=== PATIENT | female | born 1990 | race Caucasian/White ===

== ENCOUNTER → 2019-04-07 | Outpatient (CLI) | payer BC ==
[~2019-04-07] MED LIST: IBU600 MG PO; PRENATAL MVI
== END ==
LOC: COL.VAS 14:06
DX: Z13.6 Encounter for screening for cardiovascular disorders (principal); M79.89 Other specified soft tissue disorders

== ENCOUNTER 2019-04-13 16:40 | Inpatient (IN) | payer BC ==
[2019-04-13] VITALS (25 sets, daily range): BP systolic 113–147; BP diastolic 69–90; PULSE 70–97; TEMP 97.8–98.3
[~2019-04-13] VITALS: Ht 162.6 cm; Wt 73.2 kg
--- NOTE | 2019-04-13 16:50 | NUR ---
Pt arrives on unit ambulatory with spouse. States LOF since 1000 on 04/12/19 and regular ctx that began this afternoon. Spotting present with decreased FM. Changed into a clean gown. EFM and toco applied. VSS. Amniotest positive. SVE /. Admission assessment completed. Dr. Olmos notified. See physician notification. IV started. Labs drawn. Consents signed. Pt updated on POC. Safety reviewed. Bed locked in low position. Call light within reach. No questions or concerns at this time.
[2019-04-13] MEDS ORDERED: PRENATAL MVI (17:04)
[2019-04-13 17:37] LABS: BASO % 0.1 % (0.0-2.0); EOS # 0.1 (0.0-0.7); EOS % 0.6 % (0-4.0); GRAN # 13.2 (1.4-6.5); GRAN % 81.4 % (42.2-75.2); HEMOGLOBIN 11.9 g/dl (12.5-16.0); LYMPH % 12.1 % (20.0-51.0); MEAN CELL VOLUME 91 fl (80.0-100.0); MEAN CORPUSCULAR HEMOGLOBIN 32 pg (27.0-31.0); MEAN CORPUSCULAR HGB CONC 35 g/dl (33.0-37.0); MEAN PLATELET VOLUME 12.1 fl (7.4-10.4); MONO # 0.8 (0.1-0.6); MONO % 5.1 % (1.7-9.3); PLATELET COUNT 176 K/mm3 (130-400); RED BLOOD COUNT 3.71 M/mm3 (4.10-5.30); REDCELL DISTRIBUTION WIDTH-CV 12.4 % (11.5-14.5)
[2019-04-13 17:40] LABS: HEMATOCRIT 33.9 % (37.0-47.0)
[2019-04-14] VITALS (17 sets, daily range): BP systolic 112–148; BP diastolic 60–88; PULSE 74–100; TEMP 97.5–98.4
--- NOTE | 2019-04-14 | NUR ---
1814- Bedside report from BOSSMAN Daly. on L&D unit. ABX orders received. 1829- LR/Pitocin/Clindamycin infusing per protocol. See eMAR. 1999- Patient is requesting an epidural. GRAHAM Hamilton notified. 2024- GRAHAM Hamilton at bedside for epidural placement. Patient repositioned to sitting upright on the edge of the bed. EFM and TOCO on and tracing intermittently due to maternal position. 2031- Single Shot. See Anesthesia Documentation. 2053- Prolonged late deceleration noted. on unit and notified. RN to bedside. Patient repositioned to further WL. FHT recovered after a 7 minute decel. 2114- SVE /-1. Hammond catheter placed. Subtle recurrent late decelerations noted. Patient sitting upright in bed eating a snack at this time. on unit and notified. 2129- Patient repositioned to RL with PB. 2235- Recurrent late decelerations noted. remains on L&D unit and is reviewing strip. RN to bedside. Patient repositioned to LL. Oxygen administered at 10 LPM. RN remains at bedside. 2243- at bedside. SVE 4/90/-1. MD used amniohook to release remaining BOF. Small amount of odorless, red-tinged fluid noted. IUPC placed by . 2300- Recurrent late decelerations continues. remains on L&D unit. 2330- Pitocin off per . 0000- Pitocin restarted at 4mU per .
--- NOTE | 2019-04-14 02:00 | NUR ---
0045- Late deceleration noted on FHT strip. Roles on unit and updated. FHR recovered without interventions within 3 minutes. 0100- Roles on unit and updated. Will recheck SVE before leaving unit. 0115- Roles at bedside. SVE Complete/+2. Labor room prepared for delivery. Nursery RN, Wesly, notified. superintendent board mill notified. Hammond catheter removed. Patient repositioned SF into stirrups. 0120- Patient begins pushing with contractions. 0124- of viable baby girl. Cord clamped and cut by . Cord blood obtained. Pitocin off. NB care assumed by BOSSMAN Jarrell. 0128- Spontaneous delivery of placenta. Pitocin infusing at 333 ml/hr per protocol. Fundus massaged to firm by . Perineum intact. Pericare provided. Ice pack applied. 0130- PP Recovery.
--- NOTE | 2019-04-14 04:45 | NUR ---
Pt up to the bathroom with standby assist and without complications. Pt able to void. Linh-care done. Pt transferred to room 207 ambulatory. Oriented to room, bed and call light within reach. Plan of care reviewed.
--- NOTE | 2019-04-14 10:06 | NUR ---
Initial visit; Patient thanked Auditing Specialist for offering congratulations and God's blessings for the of her daughter. Auditing Specialist thanked Mom for choosing [facility].
[2019-04-15 06:30] VITALS: BP 120/73; PULSE 76; TEMP 97.4
[2019-04-15] MEDS ORDERED: IBU600 MG PO (09:28)
[2019-04-15 15:30] VITALS: BP 116/68; PULSE 86; TEMP 98.4
[2019-04-15 20:51] VITALS: BP 122/622; PULSE 80; TEMP 98.1
[2019-04-16 12:34] VITALS: BP 123/72; PULSE 96; TEMP 98.1
== END 2019-04-16 10:30 | disposition home or self-care (01) | DRG 807 ==
LOC: LDRO 16:40 → LDR 17:16 → OB 04-14 04:00
PROVIDERS: Obstetrics & Gynecology; ADMIT Obstetrics & Gynecology
PROC: 10E0XZZ Delivery of Products of Conception, External Approach (ICD-10-PCS; principal; 2019-04-14)
DX: O42.92 Full-term premature rupture of membranes, unspecified as to length of time between rupture and onset of labor (principal); Z37.0 Single live birth; Z3A.37 37 weeks gestation of pregnancy; O70.0 First degree perineal laceration during delivery
CPT/HCPCS: J2590; J2795; J7120

== ENCOUNTER 2023-05-08 08:09 | Outpatient (CLI) | payer BC ==
[~2023-05-08] VITALS: Ht 162.6 cm; Wt 69.5 kg
--- NOTE | 2023-05-08 08:30 | NUR ---
0830 SVE /. PT TOLERATED WELL. REPORTS NO LOF, NO VAGINAL BLEEDING, POSITIVE MOVEMENTS. REPORTS "REGULAR CTX" SINCE THIS MORNING. COMFORTABLE WITH POC.
[2023-05-08 09:00] VITALS: BP 137/73; PULSE 83; TEMP 98.4
--- NOTE | 2023-05-08 09:35 | NUR ---
LANA AT THIS TIME -/-2. PT TOLERATED WELL. DISCUSSED EARLY LABOR SIGNS. DR. LENNON NOTIFIED AND GAVE PT OPTION OF STAYING ANOTHER HOUR OR GOING HOME. PT REQUESTS TO STAY. FLOYD PROVIDED.
--- NOTE | 2023-05-08 10:55 | NUR ---
Discharge instructions and follow up care reviewed with pt and at the bedside. Both verbalized an understanding, agreed with the plan and states no questions or concerns at this time.
[2023-05-14] MEDS ORDERED: IBU800 M1 PO (08:18)
== END 2023-05-08 11:10 | disposition home or self-care (01) ==
LOC: LDRO 08:09
DX: Z34.93 Encounter for supervision of normal pregnancy, unspecified, third trimester (principal); Z3A.39 39 weeks gestation of pregnancy